=== PATIENT | male | born 1995 | race Hispanic/Latino ===

== ENCOUNTER 2017-04-21 17:35 | Emergency (ER) | payer BC, OTHER ==
[2017-04-21 17:42] VITALS: BP 151/65; RESP 16; TEMP 98.9; O2SAT 100
[2017-04-21 17:57] VITALS: PULSE 67
[2017-04-21 18:33] LABS: BASO # 0.1 K/uL (0.0-0.2); BASO % 0.6 % (0.0-2.0); EOS # 0.1 K/uL (0.0-0.7); HEMATOCRIT 45.5 % (35.0-51.0); LYMPH # 2.8 K/uL (1.0-4.3); LYMPH % 29.2 % (20.0-40.0); MEAN CELL VOLUME 89.1 fl (80.0-94.0); MEAN CORPUSCULAR HGB CONC 34.8 g/dL (33.0-37.0); MEAN PLATELET VOLUME 7.3 fl (7.2-11.7); MONO # 0.9 K/uL (0.0-0.8); NEUT # 5.8 K/uL (1.8-7.0); NEUT % 60.2 % (50.0-75.0); NRBC % 0.1 % (0.0-0.0); WHITE BLOOD COUNT 9.6 K/uL (4.8-10.8)
[2017-04-21 18:54] LABS: ALB/GLOB RATIO 1.7 (1.0-2.1); ALKALINE PHOSPHATASE 44 U/L (38-126); ALT/SGPT 33 U/L (21-72); AST/SGOT 42 U/L (17-59); BILIRUBIN,TOTAL 0.8 mg/dl (0.2-1.3); BLOOD UREA NITROGEN 12 mg/dl (9-20); CALCIUM 9.7 mg/dL (8.4-10.2); CARBON DIOXIDE 27 mmol/L (22-30); CHLORIDE 102 mmol/L (98-107); GFR AFRICAN-AMERICAN > 60; GLUCOSE,RANDOM 92 mg/dL (75-110); POTASSIUM 4.1 MMOL/L (3.6-5.0); SODIUM 143 mmol/l (132-148); TOTAL PROTEIN 7.3 G/DL (6.3-8.2)
[2017-04-21 19:24] LABS: THYROID STIMULATING HORMONE 1.07 mIU/ML (0.46-4.68)
== END 2017-04-21 20:12 | disposition home or self-care (01) ==
LOC: H.ER 17:35
DX: R00.2 Palpitations (principal)

== ENCOUNTER 2017-05-03 10:30 | Emergency (ER) | payer BC, OTHER ==
--- NOTE | 2017-05-03 10:44 | ED PDOC ---
HPI: Chest Pain Time Seen by Provider: 05/03/17 10:41 Chief Complaint (Nursing): Palpitations History Per: Patient (Intermittent palpitations since December this year. Seen in Cardiology today for induced SVT while having stress test. Denies chest pain, dizziness or SOB. Did not respond to Adenosine 6 mg but converted to NSR after Cardizem 20 mg IV.) Onset/Duration Of Symptoms: Other Current Symptoms Are (Timing): Intermittent Episodes Severity: Moderate Pain Scale Rating Of: 0 Quality: Other (Palpitaions) Associated Symptoms: denies: Dyspnea, Syncope Exacerbating Factors: None Past Medical History Vital Signs: Last Vital Signs Temp 99.1 F 05/03/17 10:33 Pulse 69 05/03/17 14:30 Resp 16 05/03/17 14:30 BP 128/76 05/03/17 14:30 Pulse Ox 97 05/03/17 14:30 - Medical History Other PMH: SVT - Family History Family History: States: Unknown Family Hx - Allergies Allergies/Adverse Reactions: Allergies Allergy/AdvReac Type Severity Reaction Status Date / Time shrimp Allergy ANAPHYLAXIS Verified 05/03/17 10:33 Review of Systems ROS Statement: Except As Marked, All Systems Reviewed And Found Negative Cardiovascular: Positive for: Palpitations Physical Exam - Physical Exam Appears: Positive for: Non-toxic, No Acute Distress Cardiovascular/Chest: Positive for: Regular Rate, Rhythm Respiratory: Positive for: CNT, Normal Breath Sounds Extremity: Positive for: Normal ROM Neurologic/Psych: Positive for: Alert, Oriented. Negative for: Motor/Sensory Deficits - ECG O2 Sat by Pulse Oximetry: 98 Disposition - Clinical Impression Clinical Impression: Supraventricular tachycardia - Patient ED Disposition Is Patient to be Admitted: Transfer of Care - Disposition Disposition: Transfer of Care Disposition Time: 17:04 Condition: [facility] Forms: [employer] (Serbian) Patient Signed Over To: Zander Kirk III
--- NOTE | 2017-05-03 18:03 | ED PDOC ---
- Laboratory Results Result Diagrams: 05/03/17 18:25 05/03/17 18:25 - ECG O2 Sat by Pulse Oximetry: 98 Medical Decision Making Medical Decision Making: pt endorsed from Dr Bruce at 5pm pending bed at [facility] 6pm per RN Amy who spoke to [facility], no bed yet available I informed cardiology Dr Adams. Will allow patient to eat as procedure unlikely tonight. Given now prolonging LOS given lack of beds at [facility], will obtain basic bloodwork. Dr Adams aware if wants to search for other transfer options. Disposition - Clinical Impression Clinical Impression: Supraventricular tachycardia - POA Present On Arrival: None - Disposition Disposition: Other Institution Disposition Time: 19:00 Condition: [facility] Forms: [email or web address] (Syrian) Patient Signed Over To: Theresa Kim Handoff Comments: pending bed available at [facility]. Remains in sinus rhythm on endorsement, pt and family updated on status
[2017-05-03 18:30] LABS: BASO # 0.1 K/uL (0.0-0.2); BASO % 0.6 % (0.0-2.0); EOS # 0.1 K/uL (0.0-0.7); EOS % 0.5 % (0.0-4.0); HEMATOCRIT 49.4 % (35.0-51.0); LYMPH # 2.6 K/uL (1.0-4.3); LYMPH % 24.4 % (20.0-40.0); MEAN CELL VOLUME 89.4 fl (80.0-94.0); MEAN CORPUSCULAR HEMOGLOBIN 30.7 pg (27.0-31.0); MEAN CORPUSCULAR HGB CONC 34.3 g/dL (33.0-37.0); MEAN PLATELET VOLUME 7.7 fl (7.2-11.7); MONO # 0.8 K/uL (0.0-0.8); MONO % 7.4 % (0.0-10.0); NEUT # 7.2 K/uL (1.8-7.0); NEUT % 67.1 % (50.0-75.0); NRBC % 0.2 % (0.0-0.0); RED CELL DISTRIBUTION WIDTH 13.4 % (11.5-14.5); WHITE BLOOD COUNT 10.7 K/uL (4.8-10.8)
[2017-05-03 18:41] LABS: ALB/GLOB RATIO 1.6 (1.0-2.1); ALKALINE PHOSPHATASE 51 U/L (38-126); ALT/SGPT 45 U/L (21-72); AST/SGOT 25 U/L (17-59); BLOOD UREA NITROGEN 9 mg/dl (9-20); CALCIUM 9.8 mg/dL (8.4-10.2); CARBON DIOXIDE 27 mmol/L (22-30); CHLORIDE 103 mmol/L (98-107); GFR AFRICAN-AMERICAN > 60; GLUCOSE,RANDOM 128 mg/dL (75-110); POTASSIUM 3.7 MMOL/L (3.6-5.0); SODIUM 141 mmol/l (132-148); TOTAL PROTEIN 7.6 G/DL (6.3-8.2)
[2017-05-03 18:48] LABS: PARTIAL THROMBOPLASTIN TIME 29.8 Seconds (25.6-37.1)
[2017-05-03 20:15] VITALS: RESP 18; O2SAT 98
[2017-05-03 21:28] VITALS: TEMP 98.2
[2017-05-03 22:38] VITALS: BP 104/56; PULSE 62
== END 2017-05-03 22:45 | disposition short-term general hospital (02) ==
LOC: H.ER 10:30
DX: I47.1 Supraventricular tachycardia (principal)